=== PATIENT | female | born 2000 | race Hispanic/Latino ===

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

== ENCOUNTER 2022-09-06 00:46 | Emergency (ER) | payer MEDICAID ==
[~2022-09-06] VITALS: Ht 149.9 cm; Wt 104.3 kg
[2022-09-06 01:20] LABS: BASOPHILS % (AUTO) 0.5 % (0.0-5.0); HEMATOCRIT 43.6 % (36-48); LYMPHOCYTES % (AUTO) 31.4 % (21.0-51.0); MEAN CORPUSCULAR HEMOGLOBIN 28.2 pg (27.0-33.0); MEAN CORPUSCULAR HGB CONC 32.6 g/dL (32.0-36.0); MEAN CORPUSCULAR VOLUME 86.7 fL (80-100); MONOCYTES % (AUTO) 7.9 % (3.0-13.0); NEUTROPHILS % (AUTO) 57.9 % (40.0-77.0); PLATELET COUNT (AUTO) 291 K/uL (130-400); RED BLOOD CELL COUNT(AUTO) 5.03 MIL/uL (4.00-5.50); RED CELL DISTRIBUTION WIDTH 12.7 % (11.0-15.5)
[2022-09-06 01:21] LABS: APPEARANCE,URINE CLOUDY (CLEAR); BILIRUBIN,URINE NEGATIVE (NEGATIVE); COLOR,URINE YELLOW (YELLOW); GLUCOSE, URINE (UA) NEGATIVE (NEGATIVE); KETONES,URINE 5 mg/dL (NEGATIVE); LEUKOCYTE ESTERASE ,URINE 250 Leu/uL (NEGATIVE); NITRATE,URINE NEGATIVE (NEGATIVE); OCCULT BLOOD,URINE LARGE (NEGATIVE); PROTEIN,URINE 30 mg/dL (NEGATIVE); UROBILINOGEN,URINE 0.2 mg/dL (0.2-1.0)
[2022-09-06 01:24] LABS: HCG,QUALITATIVE URINE NEGATIVE (NEGATIVE)
[2022-09-06 01:26] LABS: BACTERIA,URINE FEW /HPF (None Seen); MUCUS,URINE RARE LPF (None Seen); RBC,URINE 26-50 /HPF (0-1); SQUAMOUS EPITHELIAL CELL,UR MANY /HPF (0-2); WBC,URINE 51-100 /HPF (0-1)
[2022-09-06] MEDS ORDERED: 0.9%NACL 1000ML 1,000 ML IV SCH (01:30)
[2022-09-06] MEDS ORDERED: ACETAMINOPHEN 325 MG TAB PO ONE (02:00)
[2022-09-06] MEDS ORDERED: NITROFURANTOIN MONOHYD/M-CRYST 100 MG CAPSULE PO STA (02:09)
[2022-09-06 02:18] VITALS: BP 135/70
[2022-09-06 02:20] LABS: ALBUMIN 4.1 g/dL (3.5-5.0); CREATININE 0.7 mg/dL (0.5-1.5); TOTAL PROTEIN, SERUM 8.1 g/dL (6.0-8.3)
[2022-09-06 02:30] LABS: POTASSIUM 5.4 mmol/L (3.5-5.1)
[2022-09-06] MEDS ORDERED: PHENAZOPYRIDINE HCL 200 MG TABLET PO ONE (02:30)
[2022-09-06] MEDS ORDERED: MACR100 PO (03:21)
[2022-09-06] MEDS ORDERED: PHEN-847 PO (03:21)
== END 2022-09-06 03:29 | disposition home or self-care (01) ==
LOC: EDH 00:46
DX: N39.0 Urinary tract infection, site not specified (principal); Z90.49 Acquired absence of other specified parts of digestive tract; Z79.899 Other long term (current) drug therapy
CPT/HCPCS: 99284; 80053; 85025; 87088; 81001; 81025; 36415; J7030